=== PATIENT | female | born 1985 | race Caucasian/White ===

== ENCOUNTER 2019-05-14 17:18 | Emergency (ER) | payer BC ==
[~2019-05-14] VITALS: Ht 162.6 cm; Wt 120.7 kg
[2019-05-14] MEDS ORDERED: IV NORMAL SALINE 1,000ML 1,000 ML IV SCH (18:21)
[2019-05-14 18:48] LABS: BASO # 0.1 x10^3/uL (0.0-0.2); BASO % 1 % (0-3); EOS # 0.2 x10^3/uL (0.0-0.7); EOS % 2 % (0-3); HEMATOCRIT 39.7 % (36.0-47.0); HEMOGLOBIN 12.7 g/dL (12.0-15.5); LYMPH # 3.4 x10^3/uL (1.0-4.8); LYMPH % 33 % (24-48); MEAN CORPUSCULAR HEMOGLOBIN 26 pg (25-35); MEAN CORPUSCULAR HGB CONC 32 g/dL (31-37); MEAN CORPUSCULAR VOLUME 81 fL (79-100); MONO # 0.6 x10^3/uL (0.0-1.1); MONO % 6 % (0-9); NEUT # 6.2 x10^3uL (1.8-7.7); NEUT % 59 % (31-73); PLATELET COUNT 353 x10^3/uL (140-400); RED BLOOD COUNT 4.93 x10^6/uL (3.50-5.40); RED CELL DISTRIBUTION WIDTH 14.6 % (11.5-14.5); WHITE BLOOD COUNT 10.4 x10^3/uL (4.0-11.0)
[2019-05-14 18:56] LABS: CALCIUM 8.9 mg/dL (8.5-10.1); CREATININE 0.9 mg/dL (0.6-1.0); GFR 72.6; POTASSIUM 4.2 mmol/L (3.5-5.1)
[2019-05-14 19:02] LABS: ALBUMIN 3.2 g/dL (3.4-5.0); ALBUMIN/GLOBULIN RATIO 0.8 (1.0-1.7); MAGNESIUM 1.6 mg/dL (1.8-2.4); TOTAL BILIRUBIN 0.2 mg/dL (0.2-1.0); TOTAL PROTEIN 7.3 g/dL (6.4-8.2)
--- NOTE | 2019-05-14 19:33 | RAD ---
Exam: Chest 2 views INDICATION: Right-sided pleuritic chest pain TECHNIQUE: Frontal and lateral views the chest Comparisons: None FINDINGS: The cardiomediastinal silhouette and pulmonary vessels are within normal limits. The lung and pleural spaces are clear. IMPRESSION: No acute cardiopulmonary process. Electronically signed by: Ramon Lyons MD (05/14/2019 7:30 PM) [id number]
--- NOTE | 2019-05-14 19:39 | PHYS DOC ---
Past History Past Medical History: Diabetes Past Surgical History: Cholecystectomy Alcohol Use: None Adult General Chief Complaint Chief Complaint: CHEST WALL PAIN HPI HPI Patient is a 33 year old female who presents with complaint of right-sided chest pain. Patient states that her symptoms have been present for the past 3-4 days. Notes that she is having sharp pains along the right side of her chest near her sternum. Notes that the pain worsens when she takes a deep breath, with coughing, and with sneezing. Denies radiation of pain into the neck or shoulder. Denies any history of cardiac disease. Is on control using Implanon. No family history of heart disease in young family members or history of clotting disorder. Has not had any associated fever, shortness of breath, nausea, loose stools, or dizziness. Has not taking medication today for symptoms. Is concerned as the symptoms have lasted 3-4 days that something else could be going on as she initially thought she might have a chest wall strain. Review of Systems Review of Systems Constitutional: Denies fever or chills [] Eyes: Denies change in visual acuity, redness, or eye pain [] HENT: Denies nasal congestion or sore throat [] Respiratory: Denies cough or shortness of breath [] Cardiovascular: Chest pain, denies edema[] GI: Denies abdominal pain, nausea, vomiting, bloody stools or diarrhea [] : Denies dysuria or hematuria [] Musculoskeletal: Denies back pain or joint pain [] Integument: Denies rash or skin lesions [] Neurologic: Denies headache, focal weakness or sensory changes [] All other systems were reviewed and found to be within normal limits, except as documented in this note. Current Medications Current Medications Current Medications Medications (Trade) Dose Ordered Sig/Lauren Start Time Stop Time Status Last Admin Dose Admin Sodium Chloride 1,000 ml @ 1,000 mls/hr Q1H 05/14/19 18:21 05/14/19 19:20 DC 05/14/19 18:46 1,000 MLS/HR Allergies Allergies Allergies Coded Allergies Type Severity Reaction Last Updated Verified No Known Drug Allergies 05/14/19 No Physical Exam Physical Exam Constitutional: Alert, afebrile, appears in no acute distress. [] HENT: Normocephalic, atraumatic, bilateral external ears normal, oropharynx moist, no oral exudates, nose normal. [] Eyes: PERRLA, EOMI, conjunctiva normal, no discharge. [] Neck: Normal range of motion, no tenderness, supple, no stridor. [] Cardiovascular:Heart rate regular rhythm, no murmur [] Lungs & Thorax: Right parasternal and anterior chest wall tenderness to palpation, Bilateral breath sounds clear to auscultation [] Abdomen: Bowel sounds normal, soft, no tenderness, no masses, no pulsatile masses. [] Skin: Warm, dry, no erythema, no rash. [] Back: No tenderness, no CVA tenderness. [] Extremities: No tenderness, no cyanosis, no clubbing, ROM intact, no edema. [] Neurologic: Alert and oriented X 3, normal motor function, normal sensory function, no focal deficits noted. [] Current Patient Data Vital Signs Vital Signs Date Time Temp Pulse Resp B/P (MAP) Pulse Ox O2 Delivery O2 Flow Rate FiO2 05/14/19 17:29 97.9 88 18 162/97 (118) 100 Room Air Lab Results Laboratory Tests Test 05/14/19 18:35 05/14/19 19:06 White Blood Count 10.4 x10^3/uL (4.0-11.0) Red Blood Count 4.93 x10^6/uL (3.50-5.40) Hemoglobin 12.7 g/dL (12.0-15.5) Hematocrit 39.7 % (36.0-47.0) Mean Corpuscular Volume 81 fL (79-100) Mean Corpuscular Hemoglobin 26 pg (25-35) Mean Corpuscular Hemoglobin Concent 32 g/dL (31-37) Red Cell Distribution Width 14.6 % (11.5-14.5) H Platelet Count 353 x10^3/uL (140-400) Neutrophils (%) (Auto) 59 % (31-73) Lymphocytes (%) (Auto) 33 % (24-48) Monocytes (%) (Auto) 6 % (0-9) Eosinophils (%) (Auto) 2 % (0-3) Basophils (%) (Auto) 1 % (0-3) Neutrophils # (Auto) 6.2 x10^3uL (1.8-7.7) Lymphocytes # (Auto) 3.4 x10^3/uL (1.0-4.8) Monocytes # (Auto) 0.6 x10^3/uL (0.0-1.1) Eosinophils # (Auto) 0.2 x10^3/uL (0.0-0.7) Basophils # (Auto) 0.1 x10^3/uL (0.0-0.2) D-Dimer (Mona) 0.39 mg/L (0.00-0.50) Sodium Level 141 mmol/L (136-145) Potassium Level 4.2 mmol/L (3.5-5.1) Chloride Level 104 mmol/L (98-107) Carbon Dioxide Level 28 mmol/L (21-32) Anion Gap 9 (6-14) Blood Urea Nitrogen 6 mg/dL (7-20) L Creatinine 0.9 mg/dL (0.6-1.0) Estimated GFR (Cockcroft-Gault) 72.6 BUN/Creatinine Ratio 7 (6-20) Glucose Level 274 mg/dL (70-99) H Calcium Level 8.9 mg/dL (8.5-10.1) Magnesium Level 1.6 mg/dL (1.8-2.4) L Total Bilirubin 0.2 mg/dL (0.2-1.0) Aspartate Amino Transferase (AST) 12 U/L (15-37) L Alanine Aminotransferase (ALT) 16 U/L (14-59) Alkaline Phosphatase 112 U/L (46-116) Troponin I Quantitative < 0.017 ng/mL (0-0.055) Total Protein 7.3 g/dL (6.4-8.2) Albumin 3.2 g/dL (3.4-5.0) L Albumin/Globulin Ratio 0.8 (1.0-1.7) L POC Urine HCG, Qualitative hcg negative (Negative) EKG EKG Interpreted by me: Heart rate 88, sinus rhythm, normal intervals, normal axis, no acute ST/T-wave abnormalities present[] Radiology/Procedures Radiology/Procedures [address] [address] IMAGING REPORT Signed PATIENT: CRISTHIAN REAL AACCOUNT: [id number] : 1985 LOCATION: ER AGE: 33 SEX: F EXAM STATUS: REG ER ORD. PHYSICIAN: LAKHWINDER FLORES MD REASON: Right sided pleuritic chest pain PROCEDURE: CHEST PA & LATERAL Exam: Chest 2 views INDICATION: Right-sided pleuritic chest pain TECHNIQUE: Frontal and lateral views the chest Comparisons: None FINDINGS: The cardiomediastinal silhouette and pulmonary vessels are within normal limits. The lung and pleural spaces are clear. IMPRESSION: No acute cardiopulmonary process. Electronically signed by: Ramon Herman MD (05/14/2019 7:30 PM) [id number] DICTATED AND SIGNED BY: RAMON HERMAN MD DATE: 05/14/191929 CC: LAKHWINDER FLORES MD; NICKO URIARTE MD ~ [] Course & Med Decision Making Course & Med Decision Making Pertinent Labs and Imaging studies reviewed. (See chart for details) Patient started on IV fluids in the emergency department. Blood work and chest x-ray were reviewed. D-dimer within normal limits and troponin was normal. Blood sugar found to be elevated at 274 and magnesium mildly decreased at 1.6. Urinalysis reviewed which shows bacteria but does not show leukoesterase or nitrites and does show squamous cells. Bacteria are likely due to contaminant. Patient not complaining of any urinary symptoms at this time. The patient's examination and findings appear consistent with chest wall strain. Will defer blood sugar management to primary care provider at this time. We'll prescribe seven-day course of Naprosyn and recommended follow-up with primary doctor in 5- 7 days for reevaluation. Advised return to emergency department for any worsening symptoms. Patient was understanding and in agreement with treatment plan.[] Dragon Disclaimer Dragon Disclaimer This electronic medical record was generated, in whole or in part, using a voice recognition dictation system. Departure Departure: Impression: Primary Impression: Chest wall muscle strain Additional Impression: Type 2 diabetes mellitus Disposition: 01 HOME, SELF-CARE Condition: STABLE Referrals: NICKO URIARTE MD (PCP) Patient Instructions: Chest Wall Pain Additional Instructions: Follow-up with your primary doctor in the next 5-7 days for reevaluation if symptoms have not improved. Return to the emergency department for any worsening symptoms. Scripts Naproxen (NAPROSYN) 500 Mg Tablet 1 TAB PO BID for pain for 7 Days, #14 TAB 0 Refills Prov: LAKHWINDER FLORES MD 05/14/19 Problem Qualifiers Primary Impression: Chest wall muscle strain Encounter type: initial encounter Qualified Codes: S29.011A - Strain of muscle and tendon of front wall of thorax, initial encounter Additional Impression: Type 2 diabetes mellitus Diabetes mellitus custodial insulin use: without intermediate frame tender use Diabetes mellitus complication status: with hyperglycemia Qualified Codes: E11.65 - Type 2 diabetes mellitus with hyperglycemia LAKHWINDER FLORES MD May 14, 2019 19:39
[2019-05-14 19:46] LABS: BILIRUBIN,URINE NEG (NEG); CLARITY,URINE CLOUDY; COLOR,URINE YELLOW; GLUCOSE,URINE >=1000 mg/dL (NEG)
[2019-05-14 19:47] LABS: BACTERIA,URINE MANY /HPF (0-FEW); NITRITE,URINE NEG (NEG); SQUAMOUS EPITHELIAL CELL,UR FEW /LPF; UROBILINOGEN,URINE 0.2 mg/dL (0.2 mg/dL)
[2019-05-14] MEDS ORDERED: NAPR-683 PO (19:48)
[2019-05-14 20:00] VITALS: BP 136/98
--- NOTE | 2019-05-14 21:37 | EKG ---
[address] [address] Test Date: 2019-05-14 Test Time: 17:47:15 Pat Name: CRISTHIAN REAL Department: Room: Gender: F Production Line Operator: : 1985 Requested By: LAKHWINDER FLORES Order Number: [id number] Reading MD: Measurements Intervals [place] Rate: 88 P: 38 HI: 140 QRS: 37 QRSD: 80 T: 20 QT: 354 QTc: 432 Interpretive Statements SINUS RHYTHM QRS(T) CONTOUR ABNORMALITY CONSIDER ANTEROSEPTAL MYOCARDIAL DAMAGE POSSIBLY ABNORMAL ECG RI6.01 No previous ECG available for comparison
== END 2019-05-14 20:08 | disposition home or self-care (01) ==
LOC: ER 17:18
DX: S29.011A Strain of muscle and tendon of front wall of thorax, initial encounter (principal); E11.9 Type 2 diabetes mellitus without complications; Z90.49 Acquired absence of other specified parts of digestive tract; X58.XXXA Exposure to other specified factors, initial encounter; Y93.89 Activity, other specified; Y92.89 Other specified places as the place of occurrence of the external cause; Y99.8 Other external cause status
CPT/HCPCS: 36415; 71046; 80053; 81001; 81025; 83735; 84484; 85025; 85379; 87086; 93005; 99285; J7030

== ENCOUNTER → 2020-03-14 | Outpatient (CLI) | payer BC ==
[2019-12-01 10:30] VITALS: BP 135/83
[~2020-03-14] MED LIST: NAPR-683 PO
--- NOTE | 2020-03-14 16:27 | RAD ---
EXAMINATION: XR EXAM OF ANKLE_RIGHT 3VIEWS CLINICAL HISTORY: Right ankle pain, no known injury TECHNIQUE: XR EXAM OF ANKLE_RIGHT 3VIEWS Number of Images/Views: 3 COMPARISON: None FINDINGS: Joint spaces and alignment maintained. No acute fracture. Small corticated ossicle distal to the medi al malleolus, possibly related to remote trauma. Mild soft tissue swelling along the lateral ankle. IMPRESSION: No acute osseous abnormality right ankle. Electronically signed by: Charanjit Vallecillo DO (03/14/2020 4:24 PM) [id number]
== END ==
LOC: DXRAD 14:51
PROVIDERS: ATTEND Specialist
DX: M25.571 Pain in right ankle and joints of right foot (principal)
CPT/HCPCS: 73610